=== PATIENT | male | born 1975 | race Caucasian/White ===

== ENCOUNTER 2023-12-20 07:51 | Emergency (ER) | payer OTHER, SELFPAY ==
[2023-12-20] VITALS (12 sets, daily range): BP systolic 126–135; BP diastolic 62–80; PULSE 77–84; RESP 20–23; TEMP 36.6–36.7; O2SAT 98–100; BMI 21.6
--- NOTE | 2023-12-20 08:07 | ED_ITS ---
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 Complains of right-sided scalp/head injury as well as interscapular back pain. No loss of consciousness. Patient is not on any blood thinners. Tetanus is not up-to-date. Denies any pain or injury below the waist. Denies any direct shoulder or upper extremity pain. No chest pain no abdominal pain. No numbness tingling or weakness to the limbs. Related Data Previous Rx's Medication Instructions Recorded hydrocodone 5 mg-acetaminophen 325 1 tab PO Q6H PRN pain #14 tabs 12/20/23 mg tablet ondansetron 4 mg disintegrating 4 mg PO Q8H PRN nausea and 12/20/23 tablet vomiting #10 tabs Allergies Allergy/AdvReac Type Severity Reaction Status Date / Time No Known Drug Allergies Allergy Verified 12/20/23 08:38 Review of Systems Review of Systems Narrative: GENERAL: negative chills, fatigue, malaise, fever, sweats. HEENT: negative sinus pain, ear pain, sore throat RESPIRATORY: negative dyspnea, cough CARDIOVASCULAR: negative chest pain, palpitations GASTROINTESTINAL: negative nausea, vomiting, abdominal pain : negative dysuria, frequency, hematuria MUSCULOSKELETAL: Positive muscle or bony pain SKIN: negative rash, skin lesions NEUROLOGIC: negative weakness, numbness ROS Unobtainable: All systems reviewed & are unremarkable except as noted in HPI and below Patient History Social History Smoking Status: Former smoker Exam Narrative Exam Narrative: GENERAL: in no distress, not toxic not dyspneic HEAD: Normocephalic. There is laceration to the right parietal scalp. No bony injury or muscle injury seen. Base visualized. No foreign body seen EYES: Pupils equal round ENT: Mucous membranes moist. NECK: Trachea midline. No midline tenderness or step-off of the cervical spine however C-collar was placed. Mild tenderness to the intrascapular region of the spine. No bruising seen on the back no skin injury. CARDIOVASCULAR: Regular rate and rhythm RESPIRATORY: Clear to auscultation. Breath sounds equal bilaterally. No wheezes, rales, or rhonchi. GASTROINTESTINAL: Abdomen soft, non-tender EXTREMITIES: No gross deformities. Nontender and no gross deformity of the bilateral shoulders elbows wrists. Nontender pelvis hips knees and ankles. Patient able to stand and bear weight without any pain below the waist. BACK: No flank tenderness. NEURO: AOx4. Clear speech SKIN: Warm and dry PSYCH: Not anxious, is cooperative Initial Vital Signs Initial Vital Signs: Vital Signs Temperature 98 F 12/20/23 08:01 Pulse Rate 83 12/20/23 08:01 Respiratory Rate 20 12/20/23 08:01 Blood Pressure 128/80 12/20/23 08:01 Pulse Oximetry 98 12/20/23 08:01 Oxygen Delivery Method Room Air 12/20/23 08:01 Procedures Laceration Repair Laceration 1: Time of procedure: 09:43 Site: scalp Side (If applicable): right Size (cm): 2 Description: linear Depth: simple, single layer Local Anesthetic: lidocaine 1% and with epi Amount of anesthesia used (mL): 2 Pre-repair: wound explored, irrigated extensively, deep structures intact and cleansed with chlorhexadine Skin layer closed with: other (Three vanessa) Course Orders Ordered: ED Orders 12/20/23 08:05 CT Trauma Chest Abdomen Pelvis Stat CT cervical spine wo con Stat CT head/brain wo con Stat 12/20/23 08:09 CBC Auto Diff [Complete Blood Count AUTO DIFF] Stat CMP [Comprehensive Metabolic Panel] Stat 12/20/23 09:26 XR shoulder RT min 2V Stat Discontinued Medications Bacitracin (Bacitracin Oint 0.9 Gm Pckt) 1 applic TOP NOW ONE Stop: 12/20/23 09:42 Last Admin: 12/20/23 09:45 Dose: 1 applic Documented By: RB Diphtheria/Tetanus/Acell Pertussis (Tet,Diph,Pertuss(Acell),Vac/Pf 0.5 Ml Syringe) 0.5 ml IM .ONCE ONE Stop: 12/20/23 08:06 Last Admin: 12/20/23 09:05 Dose: 0.5 ml Documented By: RB Sodium Chloride (Normal Saline 0.9%) 500 mls @ 1,000 mls/hr IV BOLUS ONE Stop: 12/20/23 08:34 Last Infusion: 12/20/23 09:35 Dose: Infused Documented By: Admin: 12/20/23 09:06 Dose: 1,000 mls/hr Documented By: CHON Lidocaine HCl (Lidocaine 1% 20 Ml) 20 ml INJ INTRA-OP ONE Stop: 12/20/23 08:37 Last Admin: 12/20/23 08:45 Dose: 20 ml Documented By: VICTORINO Morphine Sulfate (Morphine 4 Mg/Ml Inj) 4 mg IV NOW ONE Stop: 12/20/23 08:06 Last Admin: 12/20/23 08:41 Dose: 4 mg Documented By: VICTORINO Ondansetron HCl (Ondansetron 4 Mg/2 Ml Inj) 4 mg IV NOW ONE Stop: 12/20/23 08:06 Last Admin: 12/20/23 09:05 Dose: 4 mg Documented By: CHON Vital Signs Vital signs: Vital Signs - 8 hr 12/20/23 08:01 12/20/23 08:02 12/20/23 08:03 Temperature 98 F Pulse Rate 83 84 81 Respiratory Rate 20 20 Blood Pressure 128/80 Pulse Oximetry 98 100 100 Oxygen Delivery Method Room Air Room Air 12/20/23 08:03 12/20/23 08:14 12/20/23 08:26 Temperature 98 F Pulse Rate 83 77 Respiratory Rate 20 Blood Pressure 128/70 128/80 Pulse Oximetry 98 99 Oxygen Delivery Method Room Air 12/20/23 08:26 12/20/23 08:30 12/20/23 09:00 Temperature Pulse Rate 82 80 Respiratory Rate 23 22 Blood Pressure 126/64 Pulse Oximetry 98 98 Oxygen Delivery Method 12/20/23 09:12 12/20/23 09:19 12/20/23 09:30 Temperature Pulse Rate Respiratory Rate Blood Pressure 132/62 135/63 Pulse Oximetry 98 Oxygen Delivery Method 12/20/23 10:00 12/20/23 10:20 Temperature 98.1 F Pulse Rate 79 Respiratory Rate 20 Blood Pressure 128/67 132/65 Pulse Oximetry 99 Oxygen Delivery Method Room Air MDM - Fall Lab Data 12/20/23 08:09 12/20/23 08:09 Labs: Lab Results 12/20/23 Range/Units 08:09 WBC 10.1 (4.5-11.0) X10^3/uL RBC 4.26 L (4.5-5.9) X10^6/uL Hgb 14.1 (13.5-17.5) g/dL Hct 40.9 L (41-53) % MCV 96.1 (80-100) fL MCH 33.2 (26-34) PG MCHC 34.6 (30-36) % RDW 12.9 (11.6-14.8) % Plt Count 307 (150-400) X10^3/uL Neut % (Auto) 43.9 L (50-75) % Lymph % (Auto) 46.0 H (25-40) % Rutherford % (Auto) 8.8 (3-14) % Eos % (Auto) 0.9 L (2-4) % Baso % (Auto) 0.4 (0-2) % Neut # (Auto) 4400 (2035-4752) /uL Lymph # (Auto) 4700 H (9894-1860) /uL Rutherford # (Auto) 900 (0-900) /uL Eos # (Auto) 100 (0-450) /uL Baso # (Auto) 0 (0-100) /uL Sodium 137 (137-145) mmol/L Potassium 4.1 (3.4-5.1) mmol/L Chloride 105 (98-107) mmol/L Carbon Dioxide 23 (22-32) mmol/L BUN 24 H (9-20) mg/dL Creatinine 0.93 (0.66-1.25) mg/dL Estimated GFR > 60 (>60) mL/min BUN/Creatinine Ratio 25.8 H (6-22) Glucose 140 H (70-100) mg/dL Calcium 8.9 (8.4-10.2) mg/dL Total Bilirubin 0.8 (0.2-1.3) mg/dL AST 30 (17-59) IU/L ALT 13 (<50) IU/L Alkaline Phosphatase 58 (38-126) U/L Total Protein 7.4 (6.3-8.2) g/dL Albumin 4.4 (3.5-5.0) g/dL Globulin 3.0 (1.7-4.1) g/dL Albumin/Globulin Ratio 1.5 (1.0-2.8) Imaging Data CT scan - head: Radiologist's Impression: [address] [address] [address] Scan Report Signed Patient: Mitul Lemon MR#: [id number] : 1975 Acct:[id number] Age/Sex: 48 / M Date of Service: 12/20/23 Loc: ED Accession Number: [id number] Procedure: CT head/brain wo con Ordering Provider: Ok Gray MD PROCEDURE: CT HEAD/BRAIN WO CON INDICATIONS: Fall/injury TECHNIQUE: Noncontrast 4.5 mm thick angled axial sections acquired from the foramen magnum to the vertex, with coronal and sagittal reformats. For radiation dose reduction, the following was used: automated exposure control, adjustment of mA and/or kV according to patient size. COMPARISON: None. FINDINGS: Image quality: Diagnostic. CSF spaces: Basal cisterns are patent. No extra-axial fluid collections. Ventricles are normal in size and shape. Brain: No midline shift. No intracranial masses or hemorrhage. Carrasquillo-white matter interface is normal. Skull and face: Calvarium and visualized facial bones are intact, without suspicious lesions. Sinuses: Visualized sinuses and mastoids are clear. IMPRESSION: No acute intracranial pathology. Dictated by: Michael Chung M.D. on 12/20/2023 at 8:40 Approved by: Michael Chung M.D. on 12/20/2023 at 8:40 CT - cervical spine: Radiologist's Impression: [place] [address] CT Scan Report Signed Patient: Mitul Lemon MR#: [id number] : 1975 Acct:[id number] Age/Sex: 48 / M Date of Service: 12/20/23 Loc: ED Accession Number: [id number] Procedure: CT cervical spine wo con Ordering Provider: Ok Gray MD PROCEDURE: CT CERVICAL SPINE WO CON INDICATIONS: Fall/injury TECHNIQUE: Noncontrast 3 mm thick sections acquired from the skull base to the T4 level. Sagittal and coronal reformats were then constructed. For radiation dose reduction, the following was used: automated exposure control, adjustment of mA and/or kV according to patient size. COMPARISON: None. FINDINGS: Image quality: Excellent. Bones: No fractures or dislocations. Visualized superior ribs are intact. Cervical spondylosis centered at C5-C6. There is left posterior lateral disc osteophyte complex which results in a mild degree of canal stenosis. There is severe left bony foraminal narrowing at that level. There are multiple levels of facet arthropathy in the upper cervical region. Soft tissues: Prevertebral soft tissues are normal in thickness. No paravertebral hematomas. No apical pneumothoraces. IMPRESSION: 1. No acute cervical fracture or dislocation. 2. Cervical spondylosis. Dictated by: Michael Chung M.D. on 12/20/2023 at 8:41 Approved by: Michael Chung M.D. on 12/20/2023 at 8:44 CT chest abdomen pelvis trauma: Radiologist's Impression: [address] [address] [address] Scan Report Signed Patient: Mitul Lemon MR#: [id number] : 1975 Acct:[id number] Age/Sex: 48 / M Date of Service: 12/20/23 Loc: ED Accession Number: [id number] Procedure: CT Trauma Chest Abdomen Pelvis Ordering Provider: Ok Gray MD PROCEDURE: CT TRAUMA CHEST ABDOMEN PELVIS INDICATIONS: Fell 8 feet off a ladder. Right shoulder pain. TECHNIQUE: After the administration of intravenous contrast, 5 mm thick sections acquired from the lung apices to the symphysis. 2.5 mm thick coronal and sagittal reformats were acquired. Additional 7 mm thick coronal maximum intensity projection (MIP) reformats acquired through the lungs. Optional 10-minute delayed imaging may be performed from the kidneys to the bladder. For radiation dose reduction, the following was used: automated exposure control, adjustment of mA and/or kV according to patient size. COMPARISON: None. FINDINGS: Image quality: Diagnostic. CHEST: Lower Neck: No enlarged lymph nodes. Thyroid: No thyroid nodules which require sonographic evaluation. Axillae: No enlarged lymph nodes. Chest Wall: No subcutaneous gas. Lungs and Pleura: Very mild peribronchovascular ground-glass in the right middle lobe.. No acute airspace opacities. No pneumothorax or hemothorax. Mediastinum: No mediastinal hematomas. Heart size is normal. No pericardial effusion. Thoracic aorta and pulmonary arteries demonstrate normal size and enhancement. No mediastinal or hilar adenopathy. Esophagus is normal in caliber. No hiatal hernia. Marked coronary calcifications for age. ABDOMEN: Liver: No lacerations. Gallbladder: No radiopaque gallstones or wall thickening. Biliary ducts: No biliary dilation. Pancreas: Homogenous enhancement. Spleen: Homogenous enhancement without laceration or hematoma. Adrenal Glands: Symmetric enhancement. Kidneys and Ureters: Symmetric enhancement. No hydronephrosis. No solid mass. No complex renal cystic lesion which requires follow up. Stomach and Bowel: Normal colonic caliber, without significant wall thickening. Peritoneum: No abnormal intraperitoneal fluid. No free air. Ventral Wall: No hernia. Abdominal Nodes: No retroperitoneal or mesenteric adenopathy by size criteria. Vessels: Aorta and inferior vena cava are normal in size. PELVIS: Pelvic Organs: Unremarkable. Bladder: Normal thickness. Pelvic Nodes: No enlarged lymph nodes. Miscellaneous: No inguinal hernias are seen. Bones: Pelvic ring and hip joints appear intact. No displaced rib fractures. IMPRESSION: No evidence of traumatic injury to the chest, abdomen or pelvis. Marked coronary artery calcifications for age. Consider cardiology referral. Dictated by: Carlitos Whitaker M.D. on 12/20/2023 at 9:09 Approved by: Carlitos Whitaker M.D. on 12/20/2023 at 9:16 Extremity x-ray #1: Radiologist's Impression: [place] [address] XRay Report Signed Patient: Mitul Lemon MR#: [id number] : 1975 Acct:[id number] Age/Sex: 48 / M Date of Service: 12/20/23 Loc: ED Accession Number: [id number] Procedure: XR shoulder RT min 2V Ordering Provider: Ok Gray MD PROCEDURE: XR SHOULDER RT MIN 2V INDICATIONS: Pain/fall TECHNIQUE: 3 views of the shoulder were acquired. COMPARISON: None. FINDINGS: Bones: No fractures or dislocations. No suspicious bony lesions. Visualized ribs appear intact. Soft tissues: No suspicious soft tissue calcifications. IMPRESSION: No acute fracture. No osseous lesion. If symptoms and/or clinical suspicion for pathology persist, further assessment with repeat, or advanced imaging (e.g., CT, MRI, or bone scan) may be helpful for further assessment. Dictated by: Brodie Dee M.D. on 12/20/2023 at 9:56 Approved by: Brodie Dee M.D. 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 Complains of right-sided scalp/head injury as well as interscapular back pain. No loss of consciousness. Patient is not on any blood thinners. Tetanus is not up-to-date. Denies any pain or injury below the waist. Denies any direct shoulder or upper extremity pain. No chest pain no abdominal pain. No numbness tingling or weakness to the limbs After history and exam CT head cervical spine chest abdomen pelvis morphine Zofran normal saline Tdap MDM CC: Head injury back pain Complicating co-morbidities: Not on blood thinner Data collected from: Patient Medical records reviewed: No recent visit for this complaint Differential considered: Includes but not limited to skull fracture intracranial bleed vertebral fracture contusion pneumothorax Exam documented above, pertinent findings include: Laceration to the right parietal scalp, tenderness to interscapular spine Lab Test results independently reviewed as above. Pertinent findings: Hemoglobin 14.1 hematocrit 40 platelets 307 sodium 137 potassium 4.1 BUN 24 creatinine 0.93 GFR greater than 6 Independently reviewed EKG none indicated Imaging studies independently reviewed: CT head cervical spine chest abdomen pelvis no acute findings X-ray right shoulder no acute finding Consultations: None indicated Treatments: normal saline Tdap Re-evaluations: CT C-spine no acute finding. C-collar cleared clinically and no midline tenderness step-off.. There is no midline tenderness or step-off of the cervical thoracic or lumbar spine. Patient is tender to the right scapular region. Discussion: Appropriate for discharge home. Reviewed results with patient. Agrees with treatment plan. Co-worker is driving. L and I forms were completed. Images are reassuring. Patient neurologically intact. Wound care instructions provided. Short course pain medication provided as well. Work note provided as well. Diagnosis: Scalp laceration/shoulder contusion Discharge Plan Departure Patient Disposition: Home Clinical Impression: Laceration of scalp Qualifiers: Encounter type: initial encounter Qualified Code(s): S01.01XA - Laceration without foreign body of scalp, initial encounter Contusion of right shoulder Qualifiers: Encounter type: initial encounter Qualified Code(s): S40.011A - Contusion of right shoulder, initial encounter Instructions: DI for Laceration Repair -- Vanessa, DI for Contusion, DI for Trauma, DI for Closed Head Injury, DI for Shoulder Pain Activity Restrictions/Additional Instructions: Please see family doctor or return here in 7 days to have 3 vanessa removed from your scalp. Clean the scalp daily with warm soap and water and apply a thin layer of topical antibiotic. You may shower but no swimming or submersion of head under water. May continue Tylenol or or ibuprofen for pain. Short course of pain medication has been provided for you if you needed. No driving operating machinery today or when taking prescribed pain medication. Your L and I forms have been completed. Please see your family doctor for follow up for your injury. Prescriptions: New hydrocodone-acetaminophen 5-325 mg tablet 1 tab PO Q6H PRN (Reason: pain) Qty: 14 0RF ondansetron 4 mg tablet,disintegrating 4 mg PO Q8H PRN (Reason: nausea and vomiting) Qty: 10 0RF Referrals: Miscellaneous,Doctor, MD [Primary Care Provider] - Stand Alone Forms: Patient Portal/API
[2023-12-20] MEDS: MORPHINE 4 MG/ML INJ IV (08:41)
[2023-12-20] MEDS: LIDOCAINE 1% 20 ML INJ (08:45)
--- NOTE | 2023-12-20 08:46 | RT ---
Responed to Mod trauma, pt airway patent and no distress noted. Alert and on room air, rn and MD at bedside. Released by RN
[2023-12-20] MEDS: TET,DIPH,PERTUSS(ACELL),VAC/PF 0.5 ML SYRINGE IM (09:05)
[2023-12-20] MEDS: ONDANSETRON 4 MG/2 ML INJ IV (09:05)
[2023-12-20] MEDS: SODIUM CHLORIDE 0.9% 500 ML 1000 ML IV (09:06)
--- NOTE | 2023-12-20 09:07 | PC.NURSE ---
at patient bedside and cleared c-collar and removed c-collar from patient.
--- NOTE | 2023-12-20 09:26 | DI.RAD.S_ITS ---
PROCEDURE: XR SHOULDER RT MIN 2V INDICATIONS: Pain/fall TECHNIQUE: 3 views of the shoulder were acquired. COMPARISON: None. FINDINGS: Bones: No fractures or dislocations. No suspicious bony lesions. Visualized ribs appear intact. Soft tissues: No suspicious soft tissue calcifications. IMPRESSION: No acute fracture. No osseous lesion. If symptoms and/or clinical suspicion for pathology persist, further assessment with repeat, or advanced imaging (e.g., CT, MRI, or bone scan) may be helpful for further assessment. Dictated by: Brodie Dee M.D. on 12/20/2023 at 9:56 Approved by: Brodie Dee M.D. on 12/20/2023 at 9:56
[2023-12-20] MEDS: BACITRACIN OINT 0.9 GM PCKT 1 APPLIC TOP (09:45)
[2023-12-20 10:17] LABS: Add Manual Diff / Slide Review NO; Basophils Absolute Auto 0 /uL (0-100); Basophils Percent Auto 0.4 % (0-2); Eosinophils Absolute Auto 100 /uL (0-450); Eosinophils Percent Auto 0.9 % (2-4); Hematocrit 40.9 % (41-53); Hemoglobin 14.1 g/dL (13.5-17.5); Lymphocytes Absolute Auto 4700 /uL (1100-4500); Mean Corpuscular HGB Conc 34.6 % (30-36); Mean Corpuscular Hemoglobin 33.2 PG (26-34); Mean Corpuscular Volume 96.1 fL (80-100); Monocytes Absolute Auto 900 /uL (0-900); Monocytes Percent Auto 8.8 % (3-14); Neutrophils Absolute Auto 4400 /uL (1500-7000); Neutrophils Percent Auto 43.9 % (50-75); Platelet Count 307 X10^3/uL (150-400); Red Blood Cell Count 4.26 X10^6/uL (4.5-5.9); Red Cell Distribution Width 12.9 % (11.6-14.8); White Blood Cell Count 10.1 X10^3/uL (4.5-11.0)
[2023-12-20 10:19] LABS: Alanine Aminotransferase 13 IU/L (<50); Albumin 4.4 g/dL (3.5-5.0); Albumin Globulin Ratio 1.5 (1.0-2.8); Alkaline Phosphatase 58 U/L (38-126); Aspartate Aminotransferase 30 IU/L (17-59); BUN Creatinine Ratio 25.8 (6-22); Bilirubin Total 0.8 mg/dL (0.2-1.3); Blood Urea Nitrogen 24 mg/dL (9-20); Calcium 8.9 mg/dL (8.4-10.2); Carbon Dioxide 23 mmol/L (22-32); Chloride 105 mmol/L (98-107); Estimated Glomerular Filt Rate > 60 mL/min (>60); Glucose 140 mg/dL (70-100); HEMOLYSIS < 15 (0-50); Potassium 4.1 mmol/L (3.4-5.1); Sodium 137 mmol/L (137-145); Total Protein 7.4 g/dL (6.3-8.2)
== END 2023-12-20 10:21 | disposition home or self-care (01) ==
PROVIDERS: Emergency Provider Emergency Medicine
DX: S01.01XA Laceration without foreign body of scalp, initial encounter (principal); S40.011A Contusion of right shoulder, initial encounter; W12.XXXA Fall on and from scaffolding, initial encounter; Z23 Encounter for immunization; Y99.0 Civilian activity done for income or pay
CPT/HCPCS: 12001; 36415; 70450; 71275; 72125; 73030; 74177; 80053; 85025; 90471; 96374; 96375; 99284; 99285; 90715; J2270; J2405; Q9967